=== PATIENT | female | born 1945 | race Caucasian/White ===

== ENCOUNTER 2016-08-28 05:41 | Inpatient (IN) | payer MEDICARE, OTHER ==
--- OUTSIDE RECORDS SUMMARY | 2016-08-28 05:45 | XMS REPORT | Continuity of Care Document ---
:1945 Author Organization [facility] Address Unavailable [place] [address] Care Team Providers Name Role Phone Unavailable Primary Care Provider Unavailable Source Comments This disclosure is being made pursuant to the [email or web address] program and maynot contain all information available regarding this patient.[facility] Active Allergies and Adverse Reactions Not on File Current Medications Be aware that medications may not be up to date as of this document. Alwaysverify current medications with the patient. Not on file Active Problems Not on file Social History Tobacco Use Types Packs/Day Years Used Date Never Assessed Plan of Care Health Maintenance Due Date Last Done Comments Retired-Pertussis Vaccine Adult 1964 Retired-Tetanus Vaccine Adult 1964 Mammogram 1984 Colonoscopy 1994 Well Adult Visit 1994 Zoster Vaccine 60+ 2004 Bone Density 2009 Retired-Pneumococcal 23 Vaccine-65+ yo 2009 Retired-INFLUENZA VACCINE 01/05/2015 Results from Last 3 Months Not on file
[2016-08-28] MEDS ORDERED: RINGERS SOLUTION,LACTATED 1,000 ML IV PRN (06:00)
[2016-08-28] MEDS ORDERED: ceFAZolin SODIUM 1 GM VIAL IV PRN (06:00)
[2016-08-28] MEDS ORDERED: MORPHINE SULFATE 15 MG TABLET.SA PO PRN (06:00)
[2016-08-28] MEDS ORDERED: RINGERS SOLUTION,LACTATED 850 ML IV ONE (07:45)
[2016-08-28] MEDS ORDERED: RINGERS SOLUTION,LACTATED 1,000 ML IV ONE (08:30)
[2016-08-28] MEDS: TRANEXAMIC ACID 1,000 MG in NORMAL SALINE 100 ML IV PRN ×2 (08:41→09:20)
[2016-08-28] MEDS: ROPIVACAINE HCL/PF 100 MG, KETOROLAC TROMETHAMINE 30 MG, EPINEPHrine 0.2 MG in NORMAL S... IJ PRN ×2 (08:41→09:20)
[2016-08-28] MEDS ORDERED: ONDANSETRON HCL/PF 2 MG/ML VIAL IV PRN (09:45)
[2016-08-28] MEDS ORDERED: HYDROmorphone HCL 1 MG/ML DISP.SYRIN IV PRN (09:45)
[2016-08-28] MEDS ORDERED: diphenhydrAMINE HCL 50 MG/ML VIAL IV PRN (09:45)
[2016-08-28] MEDS ORDERED: ZOLPIDEM TARTRATE 5 MG TABLET PO PRN (09:45)
[2016-08-28] MEDS ORDERED: MAGNESIUM HYDROXIDE 30 ML UDC PO PRN (09:45)
[2016-08-28] MEDS ORDERED: MAG HYDROX/ALUMINUM HYD/SIMETH 30 ML UDC PO PRN (09:45)
[2016-08-28] MEDS ORDERED: PROMETHAZINE HCL 5 MG in DEXTROSE 5 % IN WATER 50 ML IV PRN ×2 (09:45)
--- NOTE | 2016-08-28 09:50 | OR ---
Operative Report - Dictated Report Narrative: Date: 08/28/2016 Preoperative diagnosis: Right Knee degenerative joint disease. Postoperative diagnosis: Right Knee degenerative joint disease. Procedure: Right Total knee arthroplasty. Surgeon: Chavo Bains M.D. Client Delivery Manager: Riley Amaro PA-C Anesthesia: Spinal with regional block and local periarticular joint injection. Complications: None Specimens: Bone for disposal. Estimated blood loss: Minimal. Tourniquet time: 80 Minutes at 325 millimeters of mercury. Retained implants: Depuy Attune size 5 narrow right lugged cemented posterior stabilized femoral component. Size 4 fixed-bearing cemented tibial platform. 5 by 6 millimeter posterior stabilized cross-linked tibial insert. 35 millimeter medialized patella button. Indications: Mrs. Amaro is a 71-year-old female who has complained of long- standing arthrosis and pain of her right knee. This patient was followed in my clinic for period of time with significant complaints of right knee pain consistent with arthritic changes. They had failed conservative measures including, but not limited to, activity modification, passage of time, medications, and other conservative measures. Patient wished to proceed with surgical treatment. The risks, benefits, and alternatives were discussed in clinic. The risks of , blood clots, bleeding, infection, nerve/tendon blood vessel/ injury, malposition of components, intraoperative fracture, postoperative limited range of motion, persistent pain, failure of components, and need for additional procedures. Patient wished to proceed consent was obtained after answering all questions. Procedure: After marking the correct extremity on the floor, the patient was taken to the operating room. A timeout was performed. IV antibiotics consisting of Ancef were administered prior to the procedure. A regional followed by spinal anesthetic was induced by anesthesia on the operative table with all bony prominences well-padded. Esquivel catheter was placed, and a bump was placed under the operative side buttock. SCDs and NOLAN hose were utilized on the nonoperative leg. A well-padded tourniquet was applied to the operative thigh. The operative leg was then pre-scrubbed with alcohol prepped, and draped in a standard sterile fashion. After exsanguinating the extremity with an Esmarch bandage, the tourniquet was inflated. After marking out the anterior knee for standard incision centered over the patella, the skin was incised and dissected down to the joint retinaculum. The joint retinaculum was marked out as well as the horizontal axis of the patella, and a standard medial parapatellar arthrotomy was then made. The most proximal aspect of the quadriceps tendon and the patella tendon insertion were protected from release. A partial synovectomy was performed as well as a resection of the infrapatellar fat pad. The distal femoral fat pad proximal to the trochlea was also resected using cautery. The soft tissues were elevated off the medial aspect of the proximal tibia using a Mayer elevator ensuring that we did not transect the medial collateral ligament. Upon initial evaluation range of motion was approximately 5 degrees to 110 degrees of flexion. There were signs of advanced arthrosis in the medial and patellofemoral joint spaces. There were large marginal osteophytes which were removed with a rongeur. The knee was hyperflexed and the patella was tucked laterally. Protecting the surrounding soft tissues with Homans, an entry drill was placed down the femoral canal using Whitesides line for guidance into the entry point. The intramedullary femoral alignment samir was utilized in order to cut the distal femur in 5 degrees of valgus resecting 10 millimeters of bone. Next the distal femur was sized to a size 5. A posterior referencing guide was utilized to place the distal femoral cutting block in 3 degrees of external rotation. This was pinned into place. The rotation was confirmed both visually and based on anatomic landmarks. The 4 in 1 cutting jig of the appropriate size was utilized in order to make all bony cuts. The angle wing was used to ensure no notching. Retractors were utilized in order to protect surrounding soft tissues. This cut did not result in any excessive notching. We then cut the box centered over the distal femur. This allowed for resection of the anterior and posterior cruciate ligaments. I then turned my attention to the preparation of the tibia. Using an extra medullary tibial alignment samir, 6 millimeters of bone was resected off the medial articular surface. This was made perpendicular to the mechanical axis of the joint with the alignment samir centered over the ankle mortise. The alignment samir was checked and was noted to be parallel to the mechanical axis, centered over the medial one third of the tibial tubercle, paralleling the anterior surface of the tibia. We then turned our attention to the remaining meniscus and soft tissues. These were removed while protecting the surrounding ligaments and soft tissues. The marginal osteophytes off the anterior, posterior, medial, lateral aspects of the femur and tibia were removed. The tibia was sized out to a size 4. Next the tibia was drilled and punched in an externally rotated position. Next the trial femur and a series of tibial inserts were utilized in order to allow for full extension and maximal flexion. It was found that a 6 millimeter insert gave the best range of motion and stability at multiple flexion points as well as at full extension there was less than 2 mm of gapping both medially and laterally. There is minimal anterior translation with the knee at 90 degrees of flexion and no signs of being able to dislocate the knee. The patella was then prepared. The initial thickness was 21 millimeters. This was reamed down to 12 millimeters parallel to the anterior surface of the patella. It was sized out to a size 35 medialized patella button. This was then drilled and trialed. Without any medial restraint the patella tracked appropriately and did not sublux or dislocate. At this point, it was felt these were the appropriate sized implants, and all trials were removed. The standard periarticular joint injection consisting of ropivacaine, Toradol, and epinephrine were injected into the periarticular joint tissues. The bony surfaces were thoroughly irrigated with a pulsatile- suction saline irrigation device. A bone plug from the prior resected anterior chamfer cut was placed into the drill hole at the distal femur. The bony surfaces were then dried in preparation for placement of the implants. The cement was vacuum mixed per the parole hearing officer's instructions. The cement was placed on the dry bony surfaces and posterior aspect of the implants. The implants were impacted into place, removing all extruded cement. At this point anesthesia administered tranexamic acid per protocol intravenously. The knee was placed in extension with axial loading with the trial insert while the cement cured. Once the cement cured, all remaining extruded cement was removed. The knee was placed through a range of motion with the trial insert to ensure appropriate range of motion and stability. Final range of motion was approximately 0 to 120 degrees. The knee was again thoroughly irrigated with pulsatile saline lavage. The final polyethylene insert was then impacted into place ensuring no retained soft tissues. The remaining periarticular joint injection was injected. A medium Hemovac drain was placed exiting superior laterally. The knee was then placed over a triangle and the arthrotomy was closed with interrupted #1 Vicryl after thoroughly irrigating the joint. The deep and subcutaneous tissues were closed with interrupted oh and 3-0 Vicryl respectively. Skin was closed with a running subcutaneous 3-0 Monocryl and Prineo Dermabond dressing. 4 x 4's, ABD, Sof-Rol, and a full leg José Miguel wrap were applied. All sponge, needle, blade, and instrument counts were correct prior to closing the wounds. Postoperative condition: The patient was awoken and transferred to the postanesthesia care unit in stable condition. Plan is to be admitted to the inpatient medical/surgical floor postoperatively for 24 hours of IV antibiotics , physical therapy, occupational therapy, and medical comanagement. Patient will be weightbearing as tolerated with range of motion as tolerated. DVT prophylaxis will be with SCDs, NOLAN hose, and pharmacological anticoagulation. Anticipated hospital stay is approximately 2-4 days.
[2016-08-28] MEDS: ceFAZolin SODIUM 1 GM in DEXTROSE 5 % IN WATER 100 ML IV SCH ×6 (10:53→22:45)
[2016-08-28] MEDS: KETOROLAC TROMETHAMINE 15 MG/ML VIAL IV SCH ×3 (10:53→22:05)
[2016-08-28] MEDS: DEXTROSE 5%-LACTATED RINGERS 1,000 ML IV PRN ×2 (10:53→22:39)
[2016-08-28] MEDS: oxyCODONE HCL/ACETAMINOPHEN 1 TAB TABLET PO PRN ×2 (17:58→22:26)
[2016-08-28] MEDS: LORazepam 0.5 MG TABLET PO PRN ×2 (18:00→22:38)
[2016-08-28] MEDS ORDERED: MORPHINE SULFATE 15 MG TABLET.SA PO SCH (21:00)
--- NOTE | 2016-08-28 21:39 | PN ---
Subjective - Date and Time Seen Date: 08/28/16 Time: 16:35 Subjective Narrative: Reports doing well, ready to get back in bed. Pain controlled, no nausea, fever , or chills. Objective - Vitals Vitals: Last Vital Signs Temp 36.4 C L 08/28/16 19:00 Pulse 63 08/28/16 20:30 Resp 16 08/28/16 20:30 BP 118/70 08/28/16 20:30 Pulse Ox 95 08/28/16 20:30 - Exam Constitutional: Present: Alert, Oriented x3, Cooperative ENT Exam: Present: hearing grossly normal Respiratory: Present: no respiratory distress Skin Exam: Present: normal color, no cyanosis Appearance: Present: appropriate appearance, appropriate insight Eye contact: Present: cooperative, good eye contact, normal speech Cauti Physician Documentation - Urinary Catheter Management 2-way Urethral Date of Insertion: 08/28/16 Time of Insertion: 08:10 Assessment/Plan - Problems/Diagnosis (1) Status post total right knee replacement Problem: Acute Narrative: POD#0 - Doing well, no medical concerns - AM labs, will follow along
[2016-08-28] MEDS: SENNOSIDES/DOCUSATE SODIUM 1 TAB TABLET PO SCH (22:05)
[2016-08-29] MEDS: oxyCODONE HCL/ACETAMINOPHEN 1 TAB TABLET PO PRN (04:07)
[2016-08-29] MEDS: KETOROLAC TROMETHAMINE 15 MG/ML VIAL IV SCH ×4 (04:09→21:48)
[2016-08-29 05:50] LABS: Hematocrit 34.6 % (37.0-47.0); Hemoglobin 11.1 gm/dL (12.5-16.0); Mean Cell Volume 90.8 fl (78-100); Mean Corpuscular Hemoglobin 29.1 pg (27-31); Mean Corpuscular Hgb Conc 32.1 g/dl (32-36); Mean Platelet Volume 8.6 fl (6.0-9.5); Platelet Count 259 K/mm3 (150-450); Red Blood Count 3.81 M/mm3 (4.2-5.4); Red Cell Distribution Width 14.4 % (11.5-14.0); White Blood Count 8.2 K/mm3 (4.0-10.5)
[2016-08-29 05:59] LABS: Anion Gap 8.1 mmol/L (6.8-13.8); BUN/Creatinine Ratio 29.5 (9.0-21.6); Calcium * 8.4 mg/dL (7.9-10.9); Carbon Dioxide 30.1 mmol/L (24-32.6); Estimated Creat Clear 49.2; Potassium 4.2 mmol/L (3.4-4.6)
[2016-08-29] MEDS: LEVOTHYROXINE SODIUM 75 MCG TABLET PO SCH (07:23)
[2016-08-29] MEDS: PANTOPRAZOLE SODIUM 40 MG TABLET.EC PO SCH (07:23)
--- NOTE | 2016-08-29 08:08 | PN ---
Subjective - Date and Time Seen Date: 08/29/16 Time: 08:04 Subjective Narrative: Subjective: Reports some confusion last night. Was able to get to the chair with therapy. Pain is well-controlled. Voiding without any complications. Tolerating by mouth intake. Is somewhat sedated this morning. Denies calf pain. Slept well. Physical exam: Alert and oriented to person Right lower Extremity: Palpable dorsalis pedis pulse. Sensation grossly intact to light touch. Dressings clean and dry. Able to flex and extend ankle and toes. No excessive drainage. Calf and thigh are soft and nontender. Assessment: Postop day 1 status post right total knee arthroplasty. Plan: Continue with physical and occupational therapy weightbearing as tolerated. Continue with anticoagulation. 24 hours postoperative prophylactic antibiotics. Pain control with goal to rely on oral medications - we will hold the MS Contin due to her confusion. She has some baseline dementia and once she is more alert we will consider restarting this. Continue bowel regimen. Will need 6 weeks with walker or assitive device to protect joint while ambulating during the recovery process. Discharge planning. Discontinue drain and Esquivel catheter. Repeat labs in a.m. Objective - Vitals Vitals: Last Vital Signs Temp 36.6 C 08/29/16 07:32 Pulse 74 08/29/16 07:32 Resp 16 08/29/16 07:32 BP 154/77 08/29/16 07:32 Pulse Ox 92 08/29/16 07:32 - Abnormal Lab Findings Abnormal Lab Findings: Abnormal Lab Results 08/29/16 08/29/16 Range/Units 06:00 06:00 RBC 3.81 L (4.2-5.4) M/mm3 Hgb 11.1 L (12.5-16.0) gm/dL Hct 34.6 L (37.0-47.0) % RDW 14.4 H (11.5-14.0) % BUN/Creatinine Ratio 29.5 H (9.0-21.6) Random Glucose 137 H (70-110) mg/dL Cauti Physician Documentation - Urinary Catheter Management 2-way Urethral Date of Insertion: 08/28/16 Time of Insertion: 08:10 Assessment/Plan - Problems/Diagnosis (1) Status post total right knee replacement Problem: Acute (2) Anxiety Problem: Chronic (3) Depression Problem: Chronic (4) Hyperthyroidism Problem: Chronic (5) Parkinson disease Problem: Chronic (6) Palpitation Problem: Chronic (7) Acute blood loss anemia Problem: Acute
[2016-08-29] MEDS: ENOXAPARIN SODIUM 40 MG/0.4 ML SYRG SC SCH (09:33)
[2016-08-29] MEDS: CARBIDOPA/LEVODOPA CR 25/100 1 TAB TABLET.SA PO SCH (09:33)
[2016-08-29] MEDS: ESCITALOPRAM OXALATE 10 MG TAB PO SCH (09:33)
[2016-08-29] MEDS: LORazepam 0.5 MG TABLET PO PRN (11:29)
[2016-08-29] MEDS ORDERED: LORazepam 0.5 MG TABLET PO PRN (16:46)
[2016-08-29] MEDS: SENNOSIDES/DOCUSATE SODIUM 1 TAB TABLET PO SCH (20:02)
[2016-08-30] MEDS: KETOROLAC TROMETHAMINE 15 MG/ML VIAL IV SCH (04:30)
[2016-08-30 05:46] LABS: Hematocrit 34.4 % (37.0-47.0); Hemoglobin 11.4 gm/dL (12.5-16.0); Mean Cell Volume 87.1 fl (78-100); Mean Corpuscular Hemoglobin 28.9 pg (27-31); Mean Corpuscular Hgb Conc 33.1 g/dl (32-36); Mean Platelet Volume 8.6 fl (6.0-9.5); Platelet Count 272 K/mm3 (150-450); Red Blood Count 3.95 M/mm3 (4.2-5.4); Red Cell Distribution Width 13.9 % (11.5-14.0); White Blood Count 10.1 K/mm3 (4.0-10.5)
[2016-08-30 05:50] LABS: Anion Gap 14.2 mmol/L (6.8-13.8); BUN/Creatinine Ratio 27.4 (9.0-21.6); Calcium * 8.5 mg/dL (7.9-10.9); Carbon Dioxide 25.7 mmol/L (24-32.6); Estimated Creat Clear 61.9; Potassium 3.9 mmol/L (3.4-4.6)
[2016-08-30] MEDS: LEVOTHYROXINE SODIUM 75 MCG TABLET PO SCH (07:44)
[2016-08-30] MEDS: PANTOPRAZOLE SODIUM 40 MG TABLET.EC PO SCH (07:44)
[2016-08-30] MEDS: ENOXAPARIN SODIUM 40 MG/0.4 ML SYRG SC SCH (07:45)
--- NOTE | 2016-08-30 08:33 | PN ---
Subjective - Date and Time Seen Date: 08/30/16 Time: 08:31 Subjective Narrative: Subjective: Reports some confusion this morning, more alert last PM. Was able to walk in the room with therapy. Denies pain this AM. Voiding without any complications. Tolerating by mouth intake - with assistance. Is still sedated this morning. Slept well. Physical exam: Alert and oriented to person Right lower Extremity: Palpable dorsalis pedis pulse. Sensation grossly intact to light touch. Dressings clean and dry. Able to flex and extend ankle and toes. No excessive drainage. Assessment: Postop day 2 status post right total knee arthroplasty. Plan: Continue with physical and occupational therapy weightbearing as tolerated. Continue with anticoagulation. Pain control with goal to rely on oral medications - we will hold all sedating and pain meds due to her confusion. She has some baseline dementia and once she is more alert we will consider restarting this. Continue bowel regimen. Will need 6 weeks with walker or assitive device to protect joint while ambulating during the recovery process. Discharge planning - possible NH in [facility] in 1-2 days pending confusion and PT progression Objective - Vitals Vitals: Last Vital Signs Temp 36.5 C 08/30/16 06:22 Pulse 83 08/30/16 06:22 Resp 16 08/30/16 06:22 BP 134/81 08/30/16 06:22 Pulse Ox 95 08/30/16 06:22 - Abnormal Lab Findings Abnormal Lab Findings: Abnormal Lab Results 08/30/16 08/30/16 Range/Units 05:13 05:13 RBC 3.95 L (4.2-5.4) M/mm3 Hgb 11.4 L (12.5-16.0) gm/dL Hct 34.4 L (37.0-47.0) % Sodium 131 L (132-142) mmol/L Chloride 95 L (97-106) mmol/L Anion Gap 14.2 H (6.8-13.8) mmol/L BUN/Creatinine Ratio 27.4 H (9.0-21.6) Random Glucose 124 H (70-110) mg/dL Cauti Physician Documentation - Urinary Catheter Management 2-way Urethral Date of Insertion: 08/28/16 Time of Insertion: 08:10 Date of Removal: 08/29/16 Time of Removal: 07:30 Assessment/Plan - Problems/Diagnosis (1) Status post total right knee replacement Problem: Acute (2) Anxiety Problem: Chronic (3) Depression Problem: Chronic (4) Hyperthyroidism Problem: Chronic (5) Parkinson disease Problem: Chronic (6) Palpitation Problem: Chronic (7) Acute blood loss anemia Problem: Acute
[2016-08-30] MEDS: CARBIDOPA/LEVODOPA CR 25/100 1 TAB TABLET.SA PO SCH (09:43)
[2016-08-30] MEDS: ESCITALOPRAM OXALATE 10 MG TAB PO SCH (09:44)
[2016-08-30] MEDS ORDERED: LORazepam 0.5 MG TABLET ONE (16:23)
[2016-08-30] MEDS: traMADol HCL 50 MG TABLET PO PRN (16:26)
[2016-08-30] MEDS: SENNOSIDES/DOCUSATE SODIUM 1 TAB TABLET PO SCH (20:47)
[2016-08-31 05:47] LABS: Anion Gap 13.4 mmol/L (6.8-13.8); BUN/Creatinine Ratio 27.3 (9.0-21.6); Calcium * 8.6 mg/dL (7.9-10.9); Carbon Dioxide 25.5 mmol/L (24-32.6); Estimated Creat Clear 69.8; Potassium 3.9 mmol/L (3.4-4.6)
[2016-08-31] MEDS: PANTOPRAZOLE SODIUM 40 MG TABLET.EC PO SCH (06:24)
[2016-08-31] MEDS: LEVOTHYROXINE SODIUM 75 MCG TABLET PO SCH (06:25)
--- NOTE | 2016-08-31 07:50 | PN ---
Subjective - Date and Time Seen Date: 08/31/16 Time: 07:48 Subjective Narrative: Subjective: Much more alert and active this morning. Walking to the restroom w / therapy when evaluated. Was able to walk in the room with therapy. Denies pain this AM. Voiding without any complications. Tolerating by mouth intake. Physical exam: Alert and oriented to person Right lower Extremity: Wound dry, NVI, minimal swelling. Assessment: Postop day 3 status post right total knee arthroplasty. Plan: Continue with physical and occupational therapy weightbearing as tolerated. Continue with anticoagulation. Much more alert, will consider [place] for pain. She has some baseline dementia and appears to be more at baseline. Continue bowel regimen. Will need 6 weeks with walker or assitive device to protect joint while ambulating during the recovery process. Discharge planning - possible NH in [facility] tomorrow Objective - Vitals Vitals: Last Vital Signs Temp 37 C 08/31/16 07:36 Pulse 72 08/31/16 07:36 Resp 20 08/31/16 07:36 BP 144/75 08/31/16 07:36 Pulse Ox 98 08/31/16 07:36 - Abnormal Lab Findings Abnormal Lab Findings: Abnormal Lab Results 08/31/16 Range/Units 05:00 Sodium 128 L (132-142) mmol/L Plasma Sodium 128 L (130-142) mmol/L Chloride 93 L (97-106) mmol/L BUN/Creatinine Ratio 27.3 H (9.0-21.6) Random Glucose 114 H (70-110) mg/dL - Exam Constitutional: Present: Alert Cauti Physician Documentation - Urinary Catheter Management 2-way Urethral Date of Insertion: 08/28/16 Time of Insertion: 08:10 Date of Removal: 08/29/16 Time of Removal: 07:30 Assessment/Plan - Problems/Diagnosis (1) Status post total right knee replacement Problem: Acute (2) Anxiety Problem: Chronic (3) Depression Problem: Chronic (4) Hyperthyroidism Problem: Chronic (5) Parkinson disease Problem: Chronic (6) Palpitation Problem: Chronic (7) Acute blood loss anemia Problem: Acute
[2016-08-31] MEDS ORDERED: HYDROcodone/ACETAMINOPHEN 1 EACH TABLET PO PRN (07:52)
[2016-08-31] MEDS: CARBIDOPA/LEVODOPA CR 25/100 1 TAB TABLET.SA PO SCH (08:29)
[2016-08-31] MEDS: ENOXAPARIN SODIUM 40 MG/0.4 ML SYRG SC SCH (08:31)
[2016-08-31] MEDS: ESCITALOPRAM OXALATE 10 MG TAB PO SCH (08:31)
[2016-08-31] MEDS: NORMAL SALINE 1,000 ML IV PRN ×2 (09:48→18:30)
[2016-08-31] MEDS ORDERED: rOPINIRole HCL 0.5 MG TABLET PO PRN (12:22)
[2016-08-31 12:29] LABS: Anion Gap 15.1 mmol/L (6.8-13.8); BUN/Creatinine Ratio 37.9 (9.0-21.6); Calcium * 8.6 mg/dL (7.9-10.9); Carbon Dioxide 22.6 mmol/L (24-32.6); Estimated Creat Clear 66.2; Potassium 3.7 mmol/L (3.4-4.6)
[2016-08-31 12:39] LABS: Iron 28 mcg/dL (35-120); Transferrin Sat. (% Sat.) 10 % (15-55)
--- NOTE | 2016-08-31 12:44 | PN ---
Subjective - Date and Time Seen Date: 08/31/16 Time: 12:37 Subjective Narrative: Zuleima is much less confused and more alert than yesterday. Reports restless legs. Pain at this time is controlled. Worked with therapy this AM. Objective - Vitals Vitals: Last Vital Signs Temp 37 C 08/31/16 11:00 Pulse 78 08/31/16 11:00 Resp 18 08/31/16 11:00 BP 148/72 08/31/16 11:00 Pulse Ox 98 08/31/16 11:00 - Abnormal Lab Findings Abnormal Lab Findings: Abnormal Lab Results 08/31/16 08/31/16 Range/Units 05:00 12:10 Sodium 128 L 127 L (132-142) mmol/L Plasma Sodium 128 L 128 L (130-142) mmol/L Chloride 93 L 93 L (97-106) mmol/L Carbon Dioxide 22.6 L (24-32.6) mmol/L Anion Gap 15.1 H (6.8-13.8) mmol/L BUN/Creatinine Ratio 27.3 H 37.9 H (9.0-21.6) Random Glucose 114 H 140 H (70-110) mg/dL - Exam Constitutional: Present: Alert, Oriented x3, Cooperative Respiratory: Present: lungs clear, normal breath sounds, no respiratory distress Cardiovascular/Chest: Present: regular rate, rhythm, no murmur Appearance: Present: appropriate appearance Eye contact: Present: cooperative, good eye contact, normal speech Thoughts: Present: no apparent hallucination Cauti Physician Documentation - Urinary Catheter Management 2-way Urethral Date of Insertion: 08/28/16 Time of Insertion: 08:10 Date of Removal: 08/29/16 Time of Removal: 07:30 Assessment/Plan - Problems/Diagnosis (1) Status post total right knee replacement Problem: Acute Narrative: Continue with PT (2) Altered mental state Problem: Acute Narrative: Suspect from a combination or narcotics, anesthesia, and hyponatremia. Given NS 125ml/hr this AM and will recheck at noon, adjust as needed. Holding narcotics except tramadol. Trying to use tylenol primarily. Mentation is much improved today. (3) Hyponatremia Problem: Acute (4) Acute blood loss anemia Problem: Acute Narrative: Mild, stable (5) Parkinson disease Problem: Chronic (6) Restless leg syndrome Problem: Acute Narrative: Did have some of this prior to hospitalization, but worsened. May be worse with anemia. Will check iron levels. Will give low dose requip q8hrs prn restlessness.
[2016-08-31] MEDS: ACETAMINOPHEN 500 MG TABLET PO PRN (14:23)
[2016-08-31] MEDS: SENNOSIDES/DOCUSATE SODIUM 1 TAB TABLET PO SCH (20:35)
[2016-09-01] MEDS: ACETAMINOPHEN 500 MG TABLET PO PRN ×2 (00:06→06:40)
[2016-09-01] MEDS: NORMAL SALINE 1,000 ML IV PRN (02:14)
[2016-09-01] MEDS: LEVOTHYROXINE SODIUM 75 MCG TABLET PO SCH (06:37)
[2016-09-01] MEDS: PANTOPRAZOLE SODIUM 40 MG TABLET.EC PO SCH (06:37)
[2016-09-01] MEDS: traMADol HCL 50 MG TABLET PO PRN (08:35)
[2016-09-01] MEDS: CARBIDOPA/LEVODOPA CR 25/100 1 TAB TABLET.SA PO SCH (08:37)
[2016-09-01] MEDS: ESCITALOPRAM OXALATE 10 MG TAB PO SCH (08:37)
[2016-09-01] MEDS: ENOXAPARIN SODIUM 40 MG/0.4 ML SYRG SC SCH (08:40)
[2016-09-01 09:52] LABS: Albumin * 2.9 gm/dl (3.4-5.0); BUN/Creatinine Ratio 14.7 (9.0-21.6); Bilirubin, Total 0.5 mg/dL (0.0-1.1); Ca. Corrected For Albumin 8.9 mg/dL (8.4-10.2); Calcium * 8.3 mg/dL (7.9-10.9); Potassium 3.7 mmol/L (3.4-4.6); Total Protein 6.5 gm/dL (6.2-8.2)
[2016-09-01 09:55] LABS: Anion Gap 10.2 mmol/L (6.8-13.8); Carbon Dioxide 28.5 mmol/L (24-32.6)
[2016-09-01 10:53] VITALS: BP 118/64
--- NOTE | 2016-09-01 13:00 | DS ---
(1) Status post total right knee replacement Problem: Acute (2) Anxiety Problem: Chronic (3) Depression Problem: Chronic (4) Hyperthyroidism Problem: Chronic (5) Parkinson disease Problem: Chronic (6) Palpitation Problem: Chronic (7) Acute blood loss anemia Problem: Acute Description of Stay: Mrs. Amaro was admitted to the floor after undergoing right total knee arthroplasty. Tolerated this well. Was admitted to the floor postoperatively for 24 hours of IV antibiotics, pain control, medical comanagement, and occupational and physical therapy. OT and PT were consulted to assist with activities of daily living and ambulation. Was made weightbearing as tolerated with range of motion as tolerated. Pain was initially controlled with IV regimen. She was noted to have some sedation and increased confusion due to narcotics and all of her sedating medications were held for which she responded well with increased mentation. This was transitioned to oral once tolerating a by mouth intake. Was resumed on home diet and medications. Had a Esquivel catheter inserted and the operating room which was discontinued on postoperative day 1. A drain was placed intraoperatively into the knee which was discontinued on postoperative day 1. Lovenox SCD and NOLAN hose were utilized for DVT prophylaxis. Vital signs remained stable to the hospital course. Serial labs were obtained which showed a final hemoglobin of 11.4 grams. Initial labs showed hyponatremia which responded to conservative treatment and her final BMP was reviewed and was stable. Physical examination throughout the hospital course showed an extremity that had sensation that was intact to light touch, palpable pulses, a benign wound, motor intact to the toes , ankle, and knee. Knee range of motion was approximately 0 degrees to 60 degrees. Once an oral pain regimen was tolerated and she was somewhat slow to progress with therapy and thus it was felt that she would benefit from continued physical therapy at a residential facility. She is being transferred to [facility] or further physical therapy at a prison setting. Instructions: Continue with weightbearing as tolerated and range of motion as tolerated. It is okay for her to shower the wound but not soak it as long as there is no drainage or signs of bleeding. If there is any bleeding or drainage she should cover with dry gauze and tape. Change every 2-3 days as needed. The wound can be left open to air underneath the NOLAN hose otherwise he can be covered with dry gauze and tape. Continue with physical therapy. Resume home diet. Report any fever over 101.5 Fahrenheit, uncontrolled pain, increased drainage, foul odor of drainage, new or increased calf pain or shortness of breath, or any other significant complaints. She is to continue with 6 more days of Lovenox to be followed by a 325mg dialy aspirin after finishing anticoagulation if not allergic. Continue with NOLAN hose on the operative extremity until instructed otherwise. No driving until instructed otherwise. Follow up in approximately 10-14 days. Procedures Performed: see notes below List Procedures: Right total knee arthroplasty Discharge Disposition: Other HealthCare facility Disposition: Other health care facility Condition: Good Discharge Activity: Activity as tolerated, Weight bearing Discharge Diet: General/regular food Discharge Level of Care:: SNF - Care Home Care Home Therapy: Physicial Therapy, Occupation Therapy Referrals: NONE,NONE [Primary Care Provider] - Additional Patient Instructions (free text): Follow-up in the office with Dr. Bains on 09/12/16 @ 1:00pm. Prescriptions (Any new or edited meds): Enoxaparin Sodium [Lovenox] 40 mg SC Q24H #6 disp.syrin Complete Home Medications List: Complete Home Medication List: Levothyroxine Sodium [Synthroid] 75 mcg PO [id number] 01/13/13 Carbidopa/Levodopa [Carbidopa-Levodopa 25-100 Tab] 2 each PO DAILY 08/28/16 Escitalopram Oxalate [Lexapro] 10 mg PO DAILY 08/28/16 Levothyroxine Sodium [Synthroid] 112 mcg PO DAILY 08/28/16 Pantoprazole Sodium [Protonix] 40 mg PO 0700 08/28/16 Acetaminophen [Tylenol] 1,000 mg PO Q6H PRN #0 tablet 09/01/16 Enoxaparin Sodium [Lovenox] 40 mg SC Q24H #6 disp.syrin 09/01/16 LORazepam [Ativan] 0.25 mg PO BID PRN #0 tablet 09/01/16 Sennosides/Docusate Sodium [Senokot-S] 2 tab PO HS tablet 09/01/16 rOPINIRole HCL [Requip] 0.25 mg PO Q8H PRN #0 tablet 09/01/16 traMADol HCL [Ultram] 50 mg PO Q4H PRN #0 tablet 09/01/16
--- NOTE | 2016-09-01 14:59 | PN ---
Subjective - Date and Time Seen Date: 09/01/16 Time: 12:30 Subjective Narrative: Confusion comes and goes. At this time doing well. Alert and feeding herself. No focal concerns. Objective - Vitals Vitals: Last Vital Signs Temp 36.6 C 09/01/16 10:52 Pulse 58 L 09/01/16 10:52 Resp 18 09/01/16 10:52 BP 118/64 09/01/16 10:52 Pulse Ox 98 09/01/16 10:52 - Abnormal Lab Findings Abnormal Lab Findings: Abnormal Lab Results 09/01/16 Range/Units 09:27 AST 72 H (0-48) U/L ALT 15 L (19-67) U/L Albumin 2.9 L (3.4-5.0) gm/dl - Exam Constitutional: Present: Alert, Cooperative Respiratory: Present: lungs clear, normal breath sounds Cardiovascular/Chest: Present: regular rate, rhythm Cauti Physician Documentation - Urinary Catheter Management 2-way Urethral Date of Insertion: 08/28/16 Time of Insertion: 08:10 Date of Removal: 08/29/16 Time of Removal: 07:30 Assessment/Plan - Problems/Diagnosis (1) Status post total right knee replacement Problem: Acute Narrative: Ok medically for discharge. She will go to [facility]. She may follow up with me in the next month for recheck. (2) Altered mental state Problem: Acute Narrative: Comes and goes. Currently doing well. Suspect this was worsened from combination of medications, environment change, and hyponatremia. This has improved, but may not be back to her baseline. Hyponatremia has resolved. I do believe most of this to be from acute parkinsons psychosis exacerbated from environment change and medications. (3) Hyponatremia Problem: Resolved Narrative: Resolved today with Normal saline. Saline locked and ok for discharge. (4) Acute blood loss anemia Problem: Acute Narrative: Mild, no medical concerns. (5) Parkinson disease Problem: Chronic (6) Restless leg syndrome Problem: Acute Narrative: May use requip 0.25mg q6hr prn.
[2016-09-02] MEDS ORDERED: LEVOTHYROXINE SODIUM 112 MCG TABLET PO SCH (07:00)
== END 2016-09-01 14:48 | DRG 470 ==
LOC: MS 05:41
PROVIDERS: ADMIT Orthopaedic Surgery; ATTEND Orthopaedic Surgery
PROC: 0SRC0J9 Replacement of Right Knee Joint with Synthetic Substitute, Cemented, Open Approach (ICD-10-PCS; principal; 2016-08-28 08:00)
DX: M17.11 Unilateral primary osteoarthritis, right knee (principal); D62 Acute posthemorrhagic anemia; E87.1 Hypo-osmolality and hyponatremia; G25.81 Restless legs syndrome; R41.82 Altered mental status, unspecified; T40.605A Adverse effect of unspecified narcotics, initial encounter; Y92.239 Unspecified place in hospital as the place of occurrence of the external cause; G20 Parkinson's disease